=== PATIENT | female | born 1960 | race Caucasian/White ===

== ENCOUNTER → 2020-08-03 17:03 | Outpatient (CLI) | payer MEDICARE ==
[2013-02-07 09:36] VITALS: BMI 21.2
[~2020-08-03 17:03] MED LIST: AMANTADINE100 M1 PO; APAP325 MG PO; COGENTIN1 MG PO; CYMBALTA60 MG PO; DULCOLAX5 MG PO; FOLATE0.4 MG PO; HALOPERIDOL1 MG PO; KLONOPIN0.5 MG PO; KLONOPIN1 MG PO; LIORESAL 10 MG10 MG PO; MELATONIN 3 MG1 TAB PO; NICODERM C1 PATCH .1; NITROQUICK0.4 MG SL; NORCO 10/325 TA1 TA1 PO; PHENERGAN25 M1 PO; PRINIVIL10 MG PO; PROTONIX40 MG PO; SENOKOT-S TABLE1 TAB PO; SINEMET 251 UDTAB.SA PO; VITAMIN B-1100 M1 PO
[2020-08-03 17:19] LABS: BASOPHILS 0.2 % (0-2); EOSINOPHILS 7.2 % (0-7); HEMATOCRIT 41.3 % (36.0-48.0); HEMOGLOBIN 13.4 g/dL (12-16); IMMATURE GRANULOCYTES 1.5 % (0-5); LYMPHOCYTE ABS# 3.32 10x3/uL (1.18-3.74); LYMPHOCYTES 34.2 % (15-50); MCH 31.6 pg (26.0-34.0); MCHC 32.4 g/dL (31.0-37.0); MCV 97.4 fL (80.0-100.0); MONOCYTES 10.7 % (2-11); NEUTROPHIL ABS# 4.49 10x3/uL (1.56-6.13); NEUTROPHILS 46.2 % (40-80); PLATELET COUNT 182 10x3/uL (130-400); RBC 4.24 10x6/uL (4.00-5.40); RDW 14.6 % (11.5-14.5); WBC 9.7 10x3/uL (4.8-10.8)
[2020-08-03 17:34] LABS: ALBUMIN 2.8 g/dL (3.4-5.0); ANION GAP 14.8 mmol/L (8-16); BILIRUBIN - TOTAL 0.26 mg/dL (0.2-1.3); CALCIUM 8.9 mg/dL (8.5-10.1); CARBON DIOXIDE 25.7 mmol/L (21.0-32.0); CREATININE - SERUM 1.4 mg/dL (0.6-1.3); POTASSIUM - SERUM 5.5 mmol/L (3.5-5.1); PROTEIN - SERUM 6.2 g/dL (6.4-8.2); VALPROIC ACID (DEPAKOTE) 85.6 ug/mL (50.0-100.0)
== END | disposition home or self-care (01) ==
LOC: D.LABREF 17:03
PROVIDERS: ATTEND Family Medicine
DX: F31.31 Bipolar disorder, current episode depressed, mild (principal); F33.9 Major depressive disorder, recurrent, unspecified; R56.9 Unspecified convulsions; I10 Essential (primary) hypertension

== ENCOUNTER → 2020-10-07 21:17 | Outpatient (CLI) | payer MEDICARE ==
[2013-02-07 09:36] VITALS: BMI 21.2
== END | disposition home or self-care (01) ==
LOC: D.LABREF 21:17
PROVIDERS: ATTEND Family Medicine
DX: R51.9 Headache, unspecified (principal)

== ENCOUNTER → 2020-10-28 20:45 | Outpatient (CLI) | payer MEDICARE ==
[2013-02-07 09:36] VITALS: BMI 21.2
[2020-10-28 21:40] LABS: BASOPHILS 0.7 % (0-2); EOSINOPHILS 4.7 % (0-7); HEMATOCRIT 42.2 % (36.0-48.0); HEMOGLOBIN 13.9 g/dL (12-16); LYMPHOCYTES 51.2 % (15-50); MCH 31.8 pg (26.0-34.0); MCV 96.4 fL (80.0-100.0); MONOCYTES 12.2 % (2-11); NEUTROPHILS 31.2 % (40-80); PLATELET COUNT 203 10x3/uL (130-400); RBC 4.38 10x6/uL (4.00-5.40); RDW 14.6 % (11.5-14.5)
[2020-10-28 21:56] LABS: ALBUMIN 2.9 g/dL (3.4-5.0); ANION GAP 13.8 mmol/L (8-16); BILIRUBIN - TOTAL 0.15 mg/dL (0.2-1.3); CALCIUM 8.8 mg/dL (8.5-10.1); CARBON DIOXIDE 26.8 mmol/L (21.0-32.0); CREATININE - SERUM 1.4 mg/dL (0.6-1.3); POTASSIUM - SERUM 4.6 mmol/L (3.5-5.1); PROTEIN - SERUM 7.1 g/dL (6.4-8.2)
== END | disposition home or self-care (01) ==
LOC: D.LABREF 20:45
PROVIDERS: ATTEND Family Medicine
DX: R35.0 Frequency of micturition (principal)

== ENCOUNTER → 2020-10-29 13:52 | Outpatient (CLI) | payer MEDICARE ==
[2013-02-07 09:36] VITALS: BMI 21.2
[2020-10-29 14:08] LABS: BILIRUBIN NEGATIVE (NEGATIVE); KETONE NEGATIVE (NEGATIVE); NITRITE NEGATIVE (NEGATIVE); UROBILINOGEN NORMAL mg/dL (< 2)
== END | disposition home or self-care (01) ==
LOC: D.LABREF 13:52
PROVIDERS: ATTEND Family Medicine
DX: R41.82 Altered mental status, unspecified (principal)

== ENCOUNTER → 2020-10-30 17:02 | Outpatient (CLI) | payer MEDICARE ==
[2013-02-07 09:36] VITALS: BMI 21.2
== END | disposition home or self-care (01) ==
LOC: D.LABREF 17:02
PROVIDERS: ATTEND Family Medicine
DX: R41.82 Altered mental status, unspecified (principal)

== ENCOUNTER → 2020-11-03 16:59 | Outpatient (CLI) | payer MEDICARE ==
[2013-02-07 09:36] VITALS: BMI 21.2
[2020-11-03 18:39] LABS: THYROID STIMULATING HORMONE 1.37 uIU/mL (0.36-3.74); VALPROIC ACID (DEPAKOTE) 83.4 ug/mL (50.0-100.0)
== END | disposition home or self-care (01) ==
LOC: D.LABREF 16:59
PROVIDERS: ATTEND Family Medicine
DX: Z51.81 Encounter for therapeutic drug level monitoring (principal); Z79.899 Other long term (current) drug therapy; Z79.890 Hormone replacement therapy

== ENCOUNTER → 2020-11-10 19:58 | Outpatient (CLI) | payer MEDICARE ==
[2013-02-07 09:36] VITALS: BMI 21.2
[2020-11-10 20:19] LABS: BILIRUBIN NEGATIVE (NEGATIVE); KETONE NEGATIVE mg/dL (< 1+); NITRITE NEGATIVE (NEGATIVE); PH 5.5 (5.0-8.0); UROBILINOGEN NORMAL mg/dL (< 2)
== END | disposition home or self-care (01) ==
LOC: D.LABREF 19:58
PROVIDERS: ATTEND Family Medicine
DX: N39.0 Urinary tract infection, site not specified (principal); N39.41 Urge incontinence